=== PATIENT | female | born 1985 | race African-American/Black ===

== ENCOUNTER 2021-08-06 09:43 | Emergency (ER) | payer MEDICAID ==
[~2021-08-06] VITALS: Ht 165.1 cm; Wt 82.0 kg
[2021-08-06] MEDS ORDERED: KETOROLAC 60MG/2ML VIAL IM ONE (10:45)
[2021-08-06] MEDS ORDERED: IBUP-2029 MT (10:46)
[2021-08-06] MEDS ORDERED: T3 PO (10:46)
[2021-08-06 10:53] VITALS: BP 145/76
== END 2021-08-06 10:54 | disposition home or self-care (01) ==
LOC: ER 09:43
DX: K04.7 Periapical abscess without sinus (principal); R68.84 Jaw pain; Z88.6 Allergy status to analgesic agent; Z88.0 Allergy status to penicillin
CPT/HCPCS: 96372; 99283; J1885